=== PATIENT | female | born 1995 | race Caucasian/White ===

== ENCOUNTER 2017-02-12 18:03 | Emergency (ER) | payer BC ==
[2017-02-12 18:38] VITALS: RESP 16; TEMP 98.1
--- NOTE | 2017-02-12 19:28 | EDPHY ---
H & P Stated Complaint: hit head on corner of roof/passed out after/n/v HPI/ROS: CHIEF COMPLAINT: Struck head, dizziness HISTORY OF PRESENT ILLNESS: This patient is a 21 year old arriving with their friend complaining of dizziness and vomiting following striking their head on an overhang 3.5 hours ago. She states she was on a roof with friends and stood up suddenly, hitting her head hard. About 30 minutes later, she began vomiting "profusely", and states she lost consciousness briefly between episodes of vomiting. She denies falling when she lost consciousness. She states she is no longer nauseous, but that she feels woozy. No confusion, speech difficulty, numbness, weakness. REVIEW OF SYSTEMS: A ten point review of systems was performed and is negative with the exception of the items mentioned in the HPI. - Personal History LMP (Females 10-55): 8-14 Days Ago Current Tetanus/Diphtheria Vaccine: Unsure - Medical/Surgical History PMH: 1. Anemia, 2. Asthma (rescue inhaler), 3. Migraines in childhood Hx Asthma: No Hx Chronic Respiratory Disease: No Hx Diabetes: No Hx Cardiac Disease: No Hx Renal Disease: No Hx Cirrhosis: No Hx Alcoholism: No Hx HIV/AIDS: No Hx Splenectomy or Spleen Trauma: No Other PMH: denies - Social History Smoking Status: Current every day smoker Additional Social History: Moved to [place] 2 weeks ago from [facility]. 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 Father from heart attack. - Physical Exam Exam: General Appearance: Alert. Vital signs reviewed. Head: Normocephalic, atraumatic. Eyes: Pupils equal and round, no conjunctival injection, no discharge. Anicteric. ENT, Mouth: Mucous membranes are moist, no oropharyngeal erythema or edema. Neck: No lymphadenopathy, supple. No cervical spine tenderness, no pain with AROM. Respiratory: Lungs are clear to auscultation; no wheezes, rales, or rhonchi. Cardiovascular: Regular rate and rhythm; no murmur, rub, or gallop. Gastrointestinal: Abdomen is soft and nontender, no masses or organomegaly, bowel sounds normal. Skin: Warm and dry, no rashes on exposed skin, normal color. Back: Nontender to palpation over the thoracolumbar spine. No CVAT. Extremities: No lower extremity edema, no calf tenderness or swelling. Neurological: Alert and oriented. Moving all four extremities easily and equally. Cranial nerves II through XII are examined and are intact (visual acuity not tested). Strength is 5 over 5 bilaterally with testing of all major motor groups. Sensation is intact to light touch over all 4 extremities. Deep tendon reflexes are 2+ in the biceps and knees bilaterally. Gait is normal. [id number] is performed accurately. Psychiatric: Normal affect. Constitutional: Initial Vital Signs Temperature (C) 36.7 C 02/12/17 18:35 Heart Rate 98 02/12/17 18:35 Respiratory Rate 16 02/12/17 18:35 Blood Pressure 117/80 02/12/17 18:35 O2 Sat (%) 98 02/12/17 18:35 O2 Delivery Mode Room Air Allergies/Adverse Reactions: No Known Allergies Allergy (Unverified 02/12/17 18:34) Home Medications: Medication Instructions Recorded Zoloft 100mg (*) 02/12/17 Medical Decision Making ED Course/Re-evaluation: This patient is a 21 year old with probably concussion after striking her head. She had vomiting after, this has resolved. Neuro exam is normal. She denies neck or head pain. I do not think that imaging is warranted. Danger signs reviewed. Referrals given. Differential Diagnosis: I considered a ddx that includes but is not limited to skull fracture, ICH, concussion, cervical sprain. Departure - Departure Disposition: Home, Routine, Self-Care Clinical Impression: Concussion Qualifiers: Encounter type: initial encounter Loss of consciousness presence/duration: without LOC Qualified Code(s): S06.0X0A - Concussion without loss of consciousness, initial encounter Condition: Good Instructions: Concussion (ED) Additional Instructions: 1. We have referred you to a local primary care physician and to a concussion specialist. Follow up as needed for symptoms unresolved. 2. Return to the ED for severe headache, weakness, nausea, vomiting, loss of consciousness, or other worsening of condition. Referrals: Pastora Lozano MD [[facility] [place] Primary Care Provider] - As per Instructions Maria Luisa Iyer MD [Medical Doctor] - As per Instructions Report Scribed for: Mendy Mayberry Report Scribed by: Jesika Carlson Date of Report: 02/12/17 Time of Report: 19:57 Physician Review and Approval Statement: 02/12/17 19:28 Portions of this note were transcribed by the phlebotomist medical lab assistant. I, Dr. Mendy Mayberry, personally performed the history, physical exam, and medical decision- making; and confirmed the accuracy of the information in the transcribed note.
[2017-02-12 20:20] VITALS: BP 131/78; PULSE 80; O2SAT 94
== END 2017-02-12 20:20 | disposition home or self-care (01) ==
DX: S06.0X0A Concussion without loss of consciousness, initial encounter (principal); J45.909 Unspecified asthma, uncomplicated; F17.200 Nicotine dependence, unspecified, uncomplicated; W22.8XXA Striking against or struck by other objects, initial encounter

== ENCOUNTER 2017-06-02 09:25 | Emergency (ER) | payer BC ==
[2017-06-02] MEDS ORDERED: methylPREDNISolone SOD SUCC 125 MG/2 ML VIAL IVP ONE (10:05)
[2017-06-02] MEDS ORDERED: FAMOTIDINE 20 MG/2 ML SDV IVP ONE (10:05)
[2017-06-02] MEDS ORDERED: NS 1,000 ML IV ONE (10:05)
--- NOTE | 2017-06-02 11:02 | EDPHY ---
General Narrative: CHIEF COMPLAINT: Hives, scratchy throat HISTORY OF PRESENT ILLNESS: Patient complains of awaking this morning with hives and scratchy throat. The hives are on his legs, chest, back and left side of the face. Mildly pruritic. Concerned because his throat has begun to feel scratchy. Has had history of this as a child with multiple issues with and episodes of "hiving." No definite known cause. No difficulty swallowing, swelling of the eyelids, face or lips at this time. Feels as though his throat is scratchy. Concerned because he has gone into anaphylaxis as a child. This has not happened for many years, possibly as many as 8-10 years. No chest pain. No shortness of breath. This may or may not be related to ongoing and increasing stress. No known trigger for this. Took 25 mg of Benadryl as 6:00 a.m. this has significantly improved the rash. No other associated complaints or modifying factors. Patient was born female but identifies as male. REVIEW OF SYSTEMS: Ten systems reviewed and are negative unless otherwise noted in the HPI PAST MEDICAL HISTORY: History of hives as a child. Depression PAST SURGICAL HISTORY: None SOCIAL HISTORY: Recently moved here from [place]. Has no primary care or mental health at this time. FAMILY HISTORY: Noncontributory EXAMINATION General Appearance: Alert, no distress HEENT: Normocephalic atraumatic. Pupils equal round and reactive. EOM symmetric. Airway is widely patent. The uvula is midline. There is no swelling of the lips, eyelid or tongue. Cardiovascular: Pulses normal throughout. Regular and rhythm without murmur. Brisk cap refill Neurological: A&O, sensory symmetric, strength symmetric Skin: Warm and dry. There is urticarial rash to the arms and thighs Extremities: Nontender, no pedal edema Psychiatric: Mood and affect normal DIFFERENTIAL DIAGNOSES: Including but not limited to MDM: 10:05 a.m. Hives for unknown reason. These are currently present on his arms and legs. No swelling of the lips or face. No swelling of the tongue. The airway is widely patent. There is 1 area of hive on the left cheek. There is no periorbital erythema or swelling. He is in no acute distress with no drooling, stridor or difficulty swallowing or breathing. I have ordered IV steroid, Benadryl and Pepcid. I will monitor closely. He is declining epinephrine at this time, and I do not feel he warrants emergent epinephrine at this time 10:30 a.m. Notified by RN that the patient was refusing IV. I re-evaluated the patient. He informed me that he was too scared the blood being drawn, but he is okay with having an IV placed for aid administration medications. We will proceed with this. Airway remains patent. No swelling of the face. 11:00 a.m. I have re-evaluated the patient. Medications were administered at 10:45 a.m.. I will watch for a period of 1 hour. Airway remains patent. There is no swelling of the face, lips or tongue. The rash is already improving. 11:30 a.m. I have re-evaluated the patient. He is feeling nearly completely resolved. Rash is almost completely gone. There is no swelling of the lips or tongue. Airway remains patent. No drooling. No stridor. I do feel he is stable for discharge home. Provide a prescription for in his request. We discuss caution throughout the day but should he have rebound reaction. We discussed Benadryl or hydroxyzine has 6 p.r.n. for the next few days per we discussed prednisone prescription and Pepcid [id number]. ED precautions discussed. ED Precautions: Worsening pain. Erythema, edema, cyanosis, pallor, paresthesia or anesthesia. SUPERVISION: Patient was evaluated in conjunction with the supervising physician. Please see their note for details. - History Smoking Status: Current every day smoker - Objective Vital Signs: Initial Vital Signs Temperature (C) 98.6 F 06/02/17 09:27 Heart Rate 78 06/02/17 09:27 Respiratory Rate 16 06/02/17 09:27 Blood Pressure 123/87 H 06/02/17 09:27 O2 Sat (%) 97 06/02/17 09:27 O2 Delivery Mode Room Air Allergies/Adverse Reactions: No Known Allergies Allergy (Unverified 02/12/17 18:34) Home Medications: Medication Instructions Recorded Zoloft 100mg (*) 02/12/17 EPINEPHrine [Epipen 0.3 MG] 0.3 mg IM ONCE #2 syr 06/02/17 hydrOXYzine HCL [Hydroxyzine HCl] 50 mg PO Q6-8PRN PRN #15 tablet 06/02/17 predniSONE [Deltasone] 60 mg PO DAILY #15 tablet 06/02/17 Medications Given: Discontinued Medications Diphenhydramine HCl (Benadryl Injection) 25 mg IVP EDNOW ONE Stop: 06/02/17 10:06 Last Admin: 06/02/17 10:50 Dose: 25 mg Famotidine (Pepcid) 20 mg IVP EDNOW ONE Stop: 06/02/17 10:06 Last Admin: 06/02/17 10:48 Dose: 20 mg Sodium Chloride (Ns) 1,000 mls @ 0 mls/hr IV EDNOW ONE; Wide Open PRN Reason: Protocol Stop: 06/02/17 10:06 Last Admin: 06/02/17 10:47 Dose: 1,000 mls Methylprednisolone Sodium Succinate (Solu-Medrol) 125 mg IVP EDNOW ONE Stop: 06/02/17 10:06 Last Admin: 06/02/17 10:51 Dose: 125 mg Departure - Departure Disposition: Home, Routine, Self-Care Clinical Impression: Urticaria Condition: Good Instructions: Urticaria (ED), Anaphylaxis (ED) Additional Instructions: 1. Medications as described as needed 2. ED precautions as discussed Referrals: NONE *PRIMARY CARE P,. [Primary Care Provider] - As per Instructions Surinder Aguilar MD [[facility] [place] Primary Care Provider] - As per Instructions [facility] [Clinic] - As per Instructions Stand Alone Forms: Work Excuse Prescriptions: EPINEPHrine [Epipen 0.3 MG] 0.3 mg IM ONCE #2 syr hydrOXYzine HCL [Hydroxyzine HCl] 50 mg PO Q6-8PRN PRN #15 tablet PRN Reason: Itching predniSONE [Deltasone] 60 mg PO DAILY #15 tablet
[2017-06-02 11:38] VITALS: BP 95/64; PULSE 71; RESP 18; TEMP 98.8; O2SAT 96
== END 2017-06-02 11:48 | disposition home or self-care (01) ==
PROC: 3E0337Z Introduction of Electrolytic and Water Balance Substance into Peripheral Vein, Percutaneous Approach (ICD-10-PCS; principal; 2017-06-02)
DX: L50.9 Urticaria, unspecified (principal); F17.200 Nicotine dependence, unspecified, uncomplicated; E86.9 Volume depletion, unspecified
CPT/HCPCS: 96374; J1200

== ENCOUNTER 2017-06-14 22:09 | Emergency (ER) | payer BC ==
[2017-06-14 22:15] VITALS: RESP 18; TEMP 98.8
[2017-06-14] MEDS ORDERED: predniSONE 20 MG TAB PO ONE (22:43)
[2017-06-14] MEDS ORDERED: FAMOTIDINE 20 MG TAB PO ONE (22:43)
[2017-06-14] MEDS ORDERED: diphenhydrAMINE 25 MG CAP PO ONE (22:43)
--- NOTE | 2017-06-14 22:46 | EDPHY ---
H & P Stated Complaint: allergy v stress reaction - hives Source: Patient Exam Limitations: No limitations - Personal History LMP (Females 10-55): 22-28 Days Ago Current Tetanus/Diphtheria Vaccine: Yes - Medical/Surgical History Hx Asthma: No Hx Chronic Respiratory Disease: No Hx Diabetes: No Hx Cardiac Disease: No Hx Renal Disease: No Hx Cirrhosis: No Hx Alcoholism: No Hx HIV/AIDS: No Hx Splenectomy or Spleen Trauma: No Other PMH: PSHx: denies. PMHx: allergies as youth - Social History Smoking Status: Current every day smoker Time Seen by Provider: 06/14/17 22:43 HPI/ROS: HPI: This 21-year-old female who presents with Chief Complaint: hives Location: Body Quality: hives Duration: 1-3 hours prior to arrival Signs and Symptoms: No wheezing, no difficulty swallowing, no difficulty speaking, no shortness of breath, no chest pain, no nausea, no vomiting Timing: Sudden Severity: Moderate Context: Patient complains of sudden onset of hives located on her face neck torso and both arms after waking up from a nap this evening. She reports when she was a teenager in her parents were she would have periodic breakout of hives similar to this incident. She was allergy tested and found to be allergic to over 200 things including foods, pollen, dander. She was placed on Xyzal daily at that time. She said her hives stopped around the age of 15. She admits to being under considerable stress lately. denies any new detergents/lotions/soaps. She was seen in this ER a few weeks ago for a similar presentation, given an EpiPen prescription but has not filled it. She did take 3/6 days of her prednisone taper. She does not take antihistamines daily. She has not followed up with an break out man for further testing. She denies currently being short of breath, having difficulty swallowing. Modifying Factors: Benadryl 25 mg Comment: ROS: Constitutional: No fever, no chills, no weight loss Eyes: No blurred vision Respiratory: No shortness of breath, no cough Cardiovascular: No chest pain Gastrointestinal: No nausea, no vomiting no diarrhea Genitourinary: No dysuria Extremities: No myalgias Neurologic: No weakness, no numbness Skin: No rashes Hematologic: No bruising, no bleeding CONSTITUTIONAL: Extremely well-appearing and talkative white female, awake and alert, no obvious distress HEENT: Atraumatic and normocephalic, PERRL, EOMI. Tympanic membranes clear. Oropharynx clear, no tonsillar hypertrophy, no postpharyngeal edema, no exudate and moist pink mucosa. Airway patent. No lymphadenopathy. No meningismus. Cardiovascular: Normal S1/S2, regular rate, regular rhythm, without murmur rub or gallop. PULMONARY/CHEST: Symmetrical and nontender. Clear to auscultation bilaterally. Good air movement. No accessory muscle usage. ABDOMEN: Soft, nondistended, nontender, no rebound, no guarding, no peritoneal signs, no masses or organomegaly. No CVAT. EXTREMITIES: 2/2 pulses, no deformities, no clubbing, no cyanosis or edema. NEUROLOGICAL: no focal neuro deficits. GCS 15. SKIN: Warm and dry, scattered hives present on face, neck, arms, torso; monster with palpation. Good capillary refill. (Nuvia Murdock) - Social History Additional Social History: Originally from [facility]. (Nuvia Murdock) Constitutional: Initial Vital Signs Temperature (C) 37.1 C 06/14/17 22:11 Heart Rate 93 06/14/17 22:11 Respiratory Rate 18 06/14/17 22:11 Blood Pressure 136/83 H 06/14/17 22:11 O2 Sat (%) 96 06/14/17 22:11 O2 Delivery Mode Room Air Allergies/Adverse Reactions: No Known Allergies Allergy (Unverified 02/12/17 18:34) Home Medications: Medication Instructions Recorded Zoloft 100mg (*) 02/12/17 EPINEPHrine [Epipen 0.3 MG] 0.3 mg IM ONCE #2 syr 06/02/17 hydrOXYzine HCL [Hydroxyzine HCl] 50 mg PO Q6-8PRN PRN #15 tablet 06/02/17 predniSONE [Deltasone] 60 mg PO DAILY #15 tablet 06/02/17 Levocetirizine Dihydrochloride 5 mg PO DAILY #20 tablet 06/14/17 [Xyzal] predniSONE [predniSONE TAPER] 10 mg PO DAILY 6 Days ea 06/14/17 Medical Decision Making ED Course/Re-evaluation: No signs of angioedema/anaphylaxis/respiratory distress Given p.o. Pepcid, p.o. Benadryl, p.o. prednisone 60 mg Monitored in the ER for 1 hour with decrease of symptoms. (Nuvia Murdock) Differential Diagnosis: Differential diagnosis includes allergic reaction, angioedema, anaphylaxis, chronic urticaria. (Nuvia Murdock) Other Provider: PHYSICIAN DOCUMENTATION: The patient was evaluated and managed by the Physician Shipping And Receiving Operator. My co- signature indicates that I have reviewed this chart and I agree with the findings and plan of care as documented. I am the secondary supervising physician. (Alena Jett) - Data Points Medications Given: Discontinued Medications Diphenhydramine HCl (Benadryl) 25 mg PO EDNOW ONE Stop: 06/14/17 22:44 Last Admin: 06/14/17 23:01 Dose: 25 mg Famotidine (Pepcid) 20 mg PO EDNOW ONE Stop: 06/14/17 22:44 Last Admin: 06/14/17 23:01 Dose: 20 mg Prednisone (Prednisone) 60 mg PO EDNOW ONE Stop: 06/14/17 22:44 Last Admin: 06/14/17 23:01 Dose: 60 mg Departure - Departure Disposition: Home, Routine, Self-Care Clinical Impression: Urticaria Condition: Good Instructions: Urticaria (ED), Cold Compress or Soak (ED) Additional Instructions: Please fill epi pen prescription. Avoid triggers and allergens. Take Benadryl 25-50 mg as needed for allergic reaction, itching. Follow up with break out man for further testing and evaluation. Take all medications as directed. Referrals: NONE *PRIMARY CARE P,. [Primary Care Provider] - As per Instructions Migdalia Rubio MD [[facility] Primary Care Provider] - As per Instructions Prescriptions: Levocetirizine Dihydrochloride [Xyzal] 5 mg PO DAILY #20 tablet predniSONE [predniSONE TAPER] 10 mg PO DAILY 6 Days ea
[2017-06-14 23:10] VITALS: BP 134/77; PULSE 86; O2SAT 98
== END 2017-06-14 23:10 | disposition home or self-care (01) ==
DX: L50.9 Urticaria, unspecified (principal); F17.200 Nicotine dependence, unspecified, uncomplicated